=== PATIENT | female | born 1965 | race African-American/Black ===

== ENCOUNTER 2016-12-14 23:06 | Emergency (ER) | payer OTHER ==
[~2016-12-14] VITALS: Ht 175.3 cm; Wt 92.5 kg
[~2016-12-14 23:06] MED LIST: AMBIEN10 M1 GT; CALCIUM 500 MG1 EACH PO; CLONAZEPAM1 MG PO; DEPO-PROVER150 MG/ML IM; DILAUDID2 MG PO; DOXEPIN HCL75 MG PO; DURAGESIC12 MCG TD; FENTANYL1 EAC1 TD; FENTANYL1 EACH TD; KEFLEX500 MG PO; KLONOPIN1 MG PO; LEVAQUIN500 MG PO; NUVIGIL250 MG PO; OXYCODONE HCL15 MG PO; OXYCODONE15 MG PO; SIMVASTATIN20 MG PO; SKELAXIN800 MG PO
[2016-12-15 01:04] LABS: IMM.RETIC FRACTION 28.7 % (3-19); RETIC HGB EQUIVALENT 22.8 (28-36); RETICULOCYTE COUNT 1.9 % (0.5-1.8)
[2016-12-15 01:11] LABS: CHLORIDE 108 mEq/L (99-109); HEMATOCRIT 33.9 % (36.0-46.0); MCH 19.2 PG (29.0-34.0); MCHC 33.3 G/DL (30.0-36.0); MCV 57.6 FL (83-99); PLATELET COUNT 236 K/uL (156-360); POTASSIUM 3.8 mEq/L (3.7-5.4); RBC DIS.WIDTH-CV 17.2 % (11.8-14.6); RBC DIS.WIDTH-SD 30.9 % (39-53); RED BLOOD COUNT 5.89 M/uL (3.80-5.20); SODIUM 142 mEq/L (136-147); WHITE BLOOD COUNT 10.3 K/uL (4.1-10.2)
[2016-12-15 01:13] LABS: GLUCOSE 90 mg/dL (70-99)
[2016-12-15 01:14] LABS: ANION GAP 8 MEQ/L (2-14)
[2016-12-15 01:15] LABS: TOTAL BILIRUBIN 0.5 mg/dL (0.0-1.0)
[2016-12-15 01:17] LABS: ALKALINE PHOSPHATASE 90 IU/L (3-129); GFR ESTIMATE (CALCULATED) > 59 mL/min/
[2016-12-15 01:18] LABS: UREA NITROGEN (BUN) 9 mg/dL (9-23)
[2016-12-15 01:22] LABS: TROP-I INTERPRETATION NEGATIVE; TROPONIN-I < 0.01 ng/mL (0.0-0.30)
[2016-12-15] MEDS ORDERED: DILAUDID2 MG PO (02:45)
[2016-12-15 03:51] VITALS: BP 157/93
== END 2016-12-15 04:02 | disposition home or self-care (01) ==
LOC: EME 23:06
PROVIDERS: Physician Assistant
DX: D57.00 Hb-SS disease with crisis, unspecified (principal); R07.9 Chest pain, unspecified; R56.9 Unspecified convulsions
CPT/HCPCS: 71020; 71275; 80053; 84484; 85027; 85045; 93005; 99281; 99284; J0595; J1170; J1200; J2270; J2405; J7030; J7050